=== PATIENT | female | born 1985 | race African-American/Black ===

== ENCOUNTER 2023-11-29 11:03 | Emergency (ER) | payer OTHER ==
[2023-11-29 11:12] VITALS: RESP 18; TEMP 98.5; BMI 42.0
[2023-11-29] MEDS ORDERED: MAG HYDROX/AL HYDROX/SIMETH 30 ML UNIT-DOSE CUP ONE (11:51)
[2023-11-29] MEDS ORDERED: FAMOTIDINE 20 MG/50 ML IVPB 20 MG/50 ML MG IVPB ONE (11:51)
[2023-11-29] MEDS ORDERED: ACETAMINOPHEN 500 MG TABLET (FP) ONE (11:53)
[2023-11-29] MEDS: FAMOTIDINE 20 MG/50 ML IVPB 20 MG/50 ML MG IVPB ONE (12:11)
[2023-11-29] MEDS: SODIUM CHLORIDE 0.9% 500 ML INFUS.BAG IV ONE (12:11)
[2023-11-29] MEDS: MAG HYDROX/AL HYDROX/SIMETH 30 ML UNIT-DOSE CUP PO ONE (12:11)
[2023-11-29] MEDS: ACETAMINOPHEN 500 MG TABLET (FP) PO ONE (12:11)
[2023-11-29 12:31] LABS: EOS % 2.1 % (0-4.5); HEMATOCRIT 38.7 % (32.4-45.2); HEMOGLOBIN 12.7 GM/dL (10.7-15.3); LYMPH % 47.7 % (8-40); MCH 29.3 pg (25.7-33.7); MCHC 32.9 g/dl (32.0-36.0); MEAN PLT VOLUME 10.9 fl (7.5-11.1); MONO % 6.1 % (3.8-10.2); NEUT % 43.1 % (42.8-82.8); PLATELET COUNT 157 10^3/uL (134-434); RBC 4.35 M/mm3 (3.60-5.2); RDW 14.1 % (11.6-15.6); WHITE BLOOD COUNT 4.2 K/mm3 (4.0-10.0)
[2023-11-29 12:45] LABS: POTASSIUM 4.3 mmol/L (3.5-5.1)
[2023-11-29 12:48] LABS: ALBUMIN 3.5 g/dl (3.4-5.0); BLOOD UREA NITROGEN 11.9 mg/dL (7-18); CALCIUM 9.2 mg/dL (8.5-10.1)
[2023-11-29 12:51] LABS: CREATININE 0.9 mg/dL (0.55-1.3)
[2023-11-29 12:53] LABS: BILIRUBIN,TOTAL 0.4 mg/dL (0.2-1)
[2023-11-29 14:46] VITALS: BP 110/78; PULSE 67
== END 2023-11-29 14:47 | disposition home or self-care (01) ==
LOC: JER 11:03
PROC: 3E033GC Introduction of Other Therapeutic Substance into Peripheral Vein, Percutaneous Approach (ICD-10-PCS; principal; 2023-11-29)
DX: R10.12 Left upper quadrant pain (principal)
CPT/HCPCS: 36415; 74177-TC; 80053; 83690; 84703; 85025; 93005; 93010; 99285-25; Q9967

== ENCOUNTER 2024-01-04 11:07 | Emergency (ER) | payer OTHER ==
[2024-01-04 11:26] VITALS: BP 115/67; PULSE 67; RESP 20; TEMP 98; BMI 38.7
[2024-01-04 12:52] LABS: BASO % 0.6 % (0-2.0); EOS % 1.4 % (0-4.5); HEMATOCRIT 40.4 % (32.4-45.2); HEMOGLOBIN 13.2 GM/dL (10.7-15.3); LYMPH % 30.5 % (8-40); MCHC 32.7 g/dl (32.0-36.0); MEAN CELL VOLUME 88.5 fl (80-96); MEAN PLT VOLUME 10.4 fl (7.5-11.1); MONO % 4.3 % (3.8-10.2); NEUT % 63.2 % (42.8-82.8); PLATELET COUNT 209 10^3/uL (134-434); RBC 4.57 M/mm3 (3.60-5.2); RDW 14.6 % (11.6-15.6); WHITE BLOOD COUNT 5.6 K/mm3 (4.0-10.0)
[2024-01-04 13:00] LABS: INR 1.08 (0.83-1.09); PROTHROMBIN TIME (PATIENT) 12.2 SEC (9.7-13.0)
[2024-01-04 13:03] LABS: ACTIVATED PTT 32.7 SECONDS (25.2-36.5)
[2024-01-04 13:20] LABS: CHLORIDE 105 mmol/L (98-107); POTASSIUM 4.5 mmol/L (3.5-5.1); SODIUM 140 mmol/L (136-145)
[2024-01-04 13:22] LABS: CALCIUM 9.7 mg/dL (8.5-10.1)
[2024-01-04 13:23] LABS: ALBUMIN 3.8 g/dl (3.4-5.0); ANION GAP 4 mmol/L (4-13); BLOOD UREA NITROGEN 10.6 mg/dL (7-18); CO2 31 mmol/L (21-32); GLUCOSE,RANDOM 103 mg/dL (74-106); MAGNESIUM 2.3 mg/dL (1.8-2.4)
[2024-01-04 13:26] LABS: CREATININE 0.8 mg/dL (0.55-1.3); SGOT/AST 21 U/L (15-37); SGPT/ALT 22 U/L (13-61)
[2024-01-04 13:28] LABS: BILIRUBIN,TOTAL 0.6 mg/dL (0.2-1); TOT PROT 7.7 g/dl (6.4-8.2)
[2024-01-04 13:29] LABS: ALK PHOS 103 U/L (45-117)
== END 2024-01-04 13:51 | disposition home or self-care (01) ==
LOC: JER 11:07 → JERFT 11:07
DX: R10.12 Left upper quadrant pain (principal); M25.562 Pain in left knee; R07.89 Other chest pain
CPT/HCPCS: 36415; 71046-TC-FY; 73562-TC-LT-FY; 80053; 82550; 82553; 83735; 84484; 85025; 85379; 85610; 85730; 93005; 93010; 99285-25